=== PATIENT | female | born 1985 | race Caucasian/White ===

== ENCOUNTER 2016-12-04 15:56 | Inpatient (IN) | payer BC ==
[~2016-12-04] VITALS: Ht 157.5 cm; Wt 100.0 kg
[~2016-12-04 15:56] MED LIST: NO HOME MEDICATIONS; NORCO 325 MG-51 TAB PO; PRENATAL VITAMI1 TA5 PO; PRENATAL1 TA1 PO
[2017-01-08] VITALS (30 sets, daily range): BP systolic 96–158; BP diastolic 50–82; PULSE 68–109; TEMP 98.5–99.2
[2017-01-08] MEDS ORDERED: PRENATAL1 TA7 PO (07:31)
[2017-01-08] MEDS ORDERED: IRON TABLETS325 MG PO (07:32)
[2017-01-08 08:29] LABS: MEAN CELL VOLUME 86 fl (80.0-100.0); MEAN CORPUSCULAR HGB CONC 34 g/dl (33.0-37.0); MEAN PLATELET VOLUME 11.1 fl (7.4-10.4); PLATELET COUNT 185 K/mm3 (130-400); RED BLOOD COUNT 3.16 M/mm3 (4.10-5.30); REDCELL DISTRIBUTION WIDTH-CV 14.1 % (11.5-14.5); WHITE BLOOD COUNT 9.7 K/mm3 (4.8-10.8)
[2017-01-08 08:31] LABS: HEMATOCRIT 27.3 % (37.0-47.0); HEMOGLOBIN 9.3 g/dl (12.5-16.0); MEAN CORPUSCULAR HEMOGLOBIN 29 pg (27.0-31.0)
[2017-01-08 08:32] LABS: ADD PATHOLOGY DIFF REVIEW NO
[2017-01-08 09:38] LABS: BAND 9 % (0-10); NEUTROPHILS 64 % (42.0-75.2); PLATELET ESTIMATE NORMAL (NORMAL); TOTAL CELLS COUNTED 100
[2017-01-09 00:55] VITALS: BP 101/62; PULSE 72; TEMP 97.9
[2017-01-09 07:00] VITALS: BP 122/56; PULSE 78; TEMP 98.2
[2017-01-09] MEDS ORDERED: IBU600 MG PO (09:02)
== END 2017-01-09 15:13 | disposition home or self-care (01) | DRG 775 ==
LOC: LDR 01-08 06:45 → OB 01-08 15:53 → EDSTATUS 01-11 06:44 → LDRO 01-11 15:56
PROVIDERS: Obstetrics & Gynecology
PROC: 10E0XZZ Delivery of Products of Conception, External Approach (ICD-10-PCS; principal; 2017-01-08)
PROC: 0HQ9XZZ Repair Perineum Skin, External Approach (ICD-10-PCS; 2017-01-08)
DX: O69.81X0 Labor and delivery complicated by cord around neck, without compression, not applicable or unspecified (principal); O70.0 First degree perineal laceration during delivery; Z3A.39 39 weeks gestation of pregnancy; Z37.0 Single live birth
CPT/HCPCS: J2210; J2590; J7120